=== PATIENT | female | born 1980 | race Caucasian/White ===

== ENCOUNTER 2018-05-08 05:39 | Day surgery (SDC) | END 2018-05-08 10:29 | disposition home or self-care (01) ==

== ENCOUNTER 2018-06-02 05:41 | Day surgery (SDC) | payer BC ==
[~2018-06-02] VITALS: Ht 160 cm; Wt 80.1 kg
[~2018-06-02 05:41] MED LIST: ATORVASTATIN PO; BENTYL PO; GLIMEPIRIDE PO; HCTZ PO; INDERAL PO; JANUVIA PO; JARDIANCE PO; LOSARTAN PO; METF-849; OMEP20CA9; ZANTAC PO
[2018-06-02 07:02] VITALS: Ht 160 cm; Wt 80.1 kg
[2018-06-02 07:12] VITALS: BP 119/76; PULSE 81; RESP 20
[2018-06-02] MEDS ORDERED: MIDAZOLAM 1 MG/ML 2 ML INJ ONE ×3 (08:11→08:12)
[2018-06-02] MEDS ORDERED: FENTAnyl 50 MCG/ML VIAL ONE (08:12)
[2018-06-02 08:30] VITALS: BP 143/83; PULSE 78; RESP 13
== END 2018-06-02 15:49 | disposition home or self-care (01) ==
LOC: GIL 05:41
PROVIDERS: ATTEND Internal Medicine Gastroenterology
DX: K29.30 Chronic superficial gastritis without bleeding (principal); K31.7 Polyp of stomach and duodenum; K29.60 Other gastritis without bleeding; D13.2 Benign neoplasm of duodenum; I10 Essential (primary) hypertension; E11.9 Type 2 diabetes mellitus without complications; E78.5 Hyperlipidemia, unspecified
CPT/HCPCS: 43239; 82962; 84703; 88305; 88312; J2250; J3010; Z7610

== ENCOUNTER → 2018-10-10 | Outpatient (CLI) | payer BC | END | disposition home or self-care (01) | LOC: LAB 16:25 | PROVIDERS: ATTEND Internal Medicine | DX: R93.1 Abnormal findings on diagnostic imaging of heart and coronary circulation (principal); R07.9 Chest pain, unspecified | CPT/HCPCS: 80048 ==

== ENCOUNTER → 2018-11-04 | Outpatient (CLI) | payer BC ==
[~2018-11-04] MED LIST changes: +DILTIAZEM 25 MG INJ ONE; +METOPROLOL 100 MG TAB ONE; +METOPROLOL 5 MG INJ ONE; +NITROGLYCERIN AEROSOL (4.9 GM) ONE
== END | disposition home or self-care (01) ==
LOC: C/S 11:07
PROVIDERS: ATTEND Internal Medicine
DX: R07.9 Chest pain, unspecified (principal)
CPT/HCPCS: Z7610 ×4

== ENCOUNTER → 2018-12-22 | Outpatient (CLI) | payer BC ==
[~2018-12-22] MED LIST changes: +DILTIAZEM 25 MG INJ IV ONE; -DILTIAZEM 25 MG INJ ONE; +DILTIAZEM 60 MG TAB PO SCH; +METOPROLOL 5 MG INJ IV PRN; -NITROGLYCERIN AEROSOL (4.9 GM) ONE
== END | disposition home or self-care (01) ==
LOC: C/S 08:11
PROVIDERS: ATTEND Nuclear Medicine Nuclear Cardiology
DX: R94.39 Abnormal result of other cardiovascular function study (principal)
CPT/HCPCS: Z7610 ×4